=== PATIENT | male | born 2000 | race Caucasian/White ===

== ENCOUNTER → 2019-10-19 16:32 | Outpatient (CLI) | payer OTHER, SELFPAY ==
--- NOTE | 2019-10-19 16:38 | CT_ITS ---
STUDY: CT RIGHT ANKLE WITHOUT CONTRAST REASON FOR EXAM: Male, 19 years old. DISPLACED FX 5TH METATARSAL right foot. Large metal feeder fell on foot three weeks ago. Pt shielded RADIATION DOSAGE (If Supplied By Facility): CTDIvol = ( 6.13 ) mGy, DLP = ( 153.58 ) mGycm TECHNIQUE: Thin section transaxial imaging of the ankle was obtained, with sagittal and coronal reconstructed images. Individualized dose optimization techniques were used for this CT. COMPARISON: None. FINDINGS: Normal visualized distal tibia and fibula. Normal tibiotalar articulation and talar dome. Normal talus, calcaneus, navicular and cuboid tarsal bones. Normal subtalar, talonavicular and calcaneocuboid articulations. There is a transverse nondisplaced fracture at the base of the fifth metatarsal (sagittal image 34) with mild degree of sclerosis along the dorsal, medial margin (sagittal image 32) Normal navicular-cuneiform, cuneiform tarsal bones and intercuneiform articulations. Normal tarsometatarsal articulations and visualized metatarsi. The soft tissue structures are grossly normal. CT/Extremity Lower without Contra IMPRESSION: Fifth proximal metatarsal fracture with early healing, as above. Electronically Signed: Nilton Mederos MD ([place]) at 16:36 EST , Service support ,
== END ==
PROVIDERS: Referring Provider Podiatrist Foot & Ankle Surgery; Visit Provider Podiatrist Foot & Ankle Surgery
DX: S92.351D Displaced fracture of fifth metatarsal bone, right foot, subsequent encounter for fracture with routine healing (principal)
CPT/HCPCS: 73700